=== PATIENT | male | born 1955 | race Caucasian/White ===

== ENCOUNTER 2016-09-03 09:19 | Day surgery (SDC) | payer BC ==
[2016-08-30 11:10] VITALS: BMI 36.0
[2016-09-03] MEDS ORDERED: PROPOFOL 20 ML ONE ×2 (10:21)
[2016-09-03 11:32] VITALS: TEMP 98.7
[2016-09-03 11:45] VITALS: BP 122/72; PULSE 56
== END 2016-09-03 11:45 | disposition home or self-care (01) ==
LOC: FASU-ENDO 09:19
PROVIDERS: ATTEND Internal Medicine Gastroenterology
PROC: 0DJD8ZZ Inspection of Lower Intestinal Tract, Via Natural or Artificial Opening Endoscopic (ICD-10-PCS; principal; 2016-09-03 10:55)
DX: Z86.010 Personal history of colon polyps (principal)